=== PATIENT | female | born 1970 | race Caucasian/White ===

== ENCOUNTER 2016-11-13 20:41 | Emergency (ER) | payer OTHER ==
[~2016-11-13] VITALS: Ht 165.1 cm; Wt 63.0 kg
[~2016-11-13 20:41] MED LIST: ACYC400T84 PO; AMOX1TAB67 PO; AZIT600T PO; BACTDS PO; DARU800T PO; EMTR1TAB11 PO; FLUC100T PO; NORV100 PO
[2016-11-13 20:46] VITALS: Ht 165.1 cm; Wt 63.0 kg
--- NOTE | 2016-11-13 23:56 | RADRPT ---
PROCEDURE: XR Pelvis. CLINICAL INDICATION: Foreign body in the rectum TECHNIQUE: 3 views of the pelvis. COMPARISON: No prior studies are available for comparison. FINDINGS: No identifiable radiopaque foreign body is present. Bowel gas pattern is unremarkable. There are n o abnormal calcifications. Osseous structures are unremarkable. IMPRESSION: No radiopaque foreign body. Correlation with CT may be helpful if clinically indicated. RPTAT: [facility] .Rickie Zavala MD, Date Time Electronically viewed and signed by .Rickie Zavala MD, MD on 11/13/2016 23:55 .K/
--- NOTE | 2016-11-13 23:57 | RADRPT ---
PROCEDURE: XR Abdomen. CLINICAL INDICATION: Foreign body in the rectum. Rule out bowel perforation. TECHNIQUE: AP upright abdomen x-ray. COMPARISON: None. FINDINGS: The bowel gas pattern is normal. There is no evidence of obstruction or ileus. There is no evidenc e for free intraperitoneal gas. There are no abnormal calcifications. The osseus structures are un remarkable. IMPRESSION: No acute abnormality. No radiopaque foreign body identified. No evidence for free intraperitoneal g as. RPTAT: [facility] .Rickie Zavala MD, MD Date Time Electronically viewed and signed by .Rickie Zavala MD, on 11/13/2016 23:56 .K/
--- NOTE | 2016-11-14 01:34 | RADRPT ---
PROCEDURE: CT ABDOMEN AND PELVIS WITHOUT CONTRAST: CLINICAL INDICATION: 46 years of age, female , query foreign body in the rectum.. COMPARISON: Reports of x-rays performed earlier the same evening. TECHNIQUE: CT of the abdomen, and pelvis was performed without intravenous contrast. Oral contrast w as not administered prior to the examination. Coronal and sagittal reformatted images were obtained from the axial source images. Images were revi ewed on a high-resolution PACS workstation. Dose information: Based on a 32 cm phantom, the estimated radiation dose (CTDI vol mGy) for each ser ies in this exam is 8.8 . The estimated cumulative dose (DLP mGy-cm) is 460. . FINDINGS: In the absence of intravenous contrast, the study constitutes a limited assessment of the solid orga ns and vessels. LUNG BASES: Normal. ABDOMEN/PELVIS: Liver: Fine nodularity at the right lung base likely represents mild bronchiolitis. Calcified granul cherelle left lung base. Gallbladder: Normal. Bile ducts: No intrahepatic or extrahepatic biliary duct dilatation. Spleen: Normal. Pancreas: Normal. Adrenal glands: Normal. Kidneys and ureters: Normal. Aorta and IVC: Normal noncontrast appearance. Lymph nodes: Prominent inguinal lymph nodes are likely reactive. Gastrointestinal tract: Normal. Negative for evidence of a radiopaque foreign body in the rectum. Negative for abnormal wall thickening or pneumatosis. Bowel loops are decompressed. Appendix: Not visualized Bladder: Normal. Pelvic Organs: Uterus and ovaries are unremarkable. Peritoneal cavity: No free fluid or free intraperitoneal air. Abdominal wall: Normal. BONES: Musculoskeletal: Degenerative changes of the lower lumbar spine with facet joint arthritis and grade 1 anterolisthesis L4-5.. No suspicious bone lesions. IMPRESSION: Negative for evidence of a radiopaque foreign body in the rectum and negative for evidence of rectal inflammation or perforation. RPTAT: [facility] Physician Reina Date Time Electronically viewed and signed by Physician Reina on 11/14/2016 01:34 /
--- NOTE | 2016-11-14 02:31 | ERD ---
ER Documentation Chief Complaint Date/Time DATE: 11/14/16 TIME: 02:25 Chief Complaint Per pt. "vibrator stuck in my anus area" HPI 46-year-old female presents emergency room with some rectal discomfort after she had a dildo stuck in her rectum.. States it is been there for a week. She was using it when a friend came over unannounced and she accidentally pushed too far and she was startled. She denies any bleeding. Has been having trouble having a bowel movement since. ROS All systems reviewed and are negative except as per history of present illness. Medications Home Meds Active Scripts Azithromycin* (Azithromycin*) 600 Mg Tablet, 1200 MG PO Q7D for Prophylaxis of infection, #10 TAB Prov:JOHNNY BHANDARI MD 02/25/14 Acyclovir* (Zovirax*) 400 Mg Tablet, 400 MG PO TID, #9 TAB Prov:JOHNNY BHANDARI MD 02/25/14 Amoxicillin-Clavulanate K* (Augmentin*) 500 Mg Tab, 500 MG PO BID, #14 TAB Prov:JOHNNY BHANDARI MD 02/25/14 Sulfamethoxazole-Trimethoprim* (Bactrim* DS) 1 Tab Tab, 1 TAB PO DAILY for Prophylaxis of infection , #30 TAB Prov:JOHNNY BHANDARI MD 02/25/14 Fluconazole* (Diflucan*) 100 Mg Tab, 100 MG PO DAILY, #3 Prov:JOHNNY BHANDARI MD 02/25/14 Reported Medications Emtricitabine-Tenofovir* (Truvada*) 200-300 Mg Tablet, 1 TAB PO DAILY, TAB 02/21/14 Darunavir* (Prezista*) 800 Mg Tablet, 800 MG PO DAILY W/ FOOD, TAB 02/21/14 Ritonavir* (Norvir*) 100 Mg Capsule, 100 MG PO DAILY, CAP 02/21/14 Allergies Allergies: Coded Allergies: darunavir (Verified Adverse Reaction, Unknown, 02/25/14) ACCELERATED HR AND SOB ritonavir (Verified Adverse Reaction, Unknown, 02/25/14) ACCELERATED HR AND SOB PMhx/Soc History of Surgery: Yes (csection, appendix) Anesthesia Reaction: No Hx Neurological Disorder: No Hx Respiratory Disorders: No Hx Cardiac Disorders: No Hx Psychiatric Problems: No Hx Miscellaneous Medical Probl: Yes (HIV) Hx Alcohol Use: No Hx Substance Use: Yes (marijuana) Hx Tobacco Use: No Smoking Status: Never smoker Physical Exam Vitals Vital Signs Date Time Temp Pulse Resp B/P Pulse Ox O2 Delivery O2 Flow Rate FiO2 11/13/16 20:46 99.9 89 18 150/92 98 Physical Exam Const: [] No distress Head: Atraumatic Eyes: Normal Conjunctiva ENT: Normal External Ears, Nose and Mouth...~ No meningismus. Resp: Clear to auscultation bilaterally Cardio: Regular rate and rhythm, no murmurs Abd: Soft, non tender, non distended. Normal bowel sounds Skin: No petechiae or rashes Back: No midline or flank tenderness Ext: No cyanosis, or edema Neur: Awake and alert Psych: Normal Mood and Affect Procedures/MDM Patient believes she had a dildo foreign body. Is more like that she had a fecal impaction because there is no foreign body found. Manual disc decompression was performed in looking for foreign body that may not have been radial opaque after nothing was visualized on xray. Patient stated it may not have contained batteries and may not have vibrated. CT was then performed to make sure there were no other foreign bodies that had been farther up that were not visualized is an x-ray. I follow the entire colon through an there are no foreign bodies that I can see. Patient had no pain or distress believe is not likely that she has any foreign body as she stated it was 6 inches at least an inch thick. Patient stated there is no chance that she can be initially. Having her follow-up with her primary care follow-up and return emergency room if she has any further pain or discomfort. No signs of perforation. Manual disimpaction note: Attempt to search for foreign body. A Troy was placed with a balloon inflated after the entire length of the Troy was inserted. Compact ring forceps are ready. Nothing obtained was a large amount of stool with both manual use and use of the Troy. Patient tolerated procedure well no complications. No bleeding or discomfort at all. Pelvis and abdominal x-ray interpretation: No signs of free air perforation, no visualized radiopaque foreign bodies. Moderate stool retention in the right colon. Normal bowel gas pattern otherwise. CT abdomen pelvis interpretation: I see no acute process. I see no visualized foreign bodies, no abnormal fat stranding, no free air perforation, no obstruction, no fractures Departure Diagnosis: Primary Impression: Retained foreign body Additional Impression: Fecal impaction in rectum Condition: Stable Patient Instructions: Rectal Foreign Body, Removed (Adult) Referrals: PREETHI KENDRICK MD (PCP) Additional Instructions: Call your primary care doctor TOMORROW for an appointment during the next 2-3 days.See the doctor sooner or return here if your condition worsens before your appointment time. DEBORA CLINE DO Nov 14, 2016 02:31
== END 2016-11-14 02:19 | disposition home or self-care (01) ==
LOC: FTE 20:41
DX: T18.5XXA Foreign body in anus and rectum, initial encounter (principal); K56.41 Fecal impaction; X58.XXXA Exposure to other specified factors, initial encounter; Y92.9 Unspecified place or not applicable
CPT/HCPCS: 72170; 74000; 74176; Z7502